=== PATIENT | female | born 1940 | race Caucasian/White ===

== ENCOUNTER 2022-05-03 02:32 | Outpatient (CLI) | payer MEDICARE, SELFPAY ==
[2022-05-03 10:01] LABS: HCT 38.1 % (36.0-46.0); HGB 12.1 g/dL (11.2-15.7); MCH 27.6 pg (27.0-33.0); MCHC 31.8 % (32.0-36.0); MCV 87 fL (80-95); Platelet Count 280 10^3/uL (130-400); RBC 4.39 10^6/uL (3.93-5.22); RDW 14.7 % (11.7-14.6); RDW-SD 47.4 fL
[2022-05-03 10:43] LABS: ALT 16 U/L (14-59); AST 14 U/L (15-37); Albumin 3.6 g/dL (3.4-5.0); Alkaline Phosphatase 69 U/L (46-116); Anion Gap 11.4 mmol/L (3-11); BUN 23 mg/dL (7-18); Bilirubin, Total 0.3 mg/dL (0.2-1.0); CO2 23.6 mmol/L (21.0-32.0); Calcium 9.3 mg/dL (8.5-10.1); Chloride 106 mmol/L (98-107); Glucose 106 mg/dL (74-106); Potassium 4.2 mmol/L (3.5-5.1); Sodium 141 mmol/L (136-145)
== END 2022-05-03 02:33 | disposition home or self-care (01) ==
LOC: LBO 02:32
PROVIDERS: Visit Provider Obstetrics & Gynecology Gynecology
DX: Z01.818 Encounter for other preprocedural examination (principal)
CPT/HCPCS: 36415; 80053; 85027

== ENCOUNTER 2022-05-09 12:49 | Outpatient (CLI) | payer MEDICARE, SELFPAY ==
[2022-05-09 13:55] LABS: ALT 13 U/L (14-59); AST 17 U/L (15-37); Albumin 3.5 g/dL (3.4-5.0); Alkaline Phosphatase 74 U/L (46-116); Anion Gap 13.3 mmol/L (3-11); BUN 17 mg/dL (7-18); Bilirubin, Total 0.3 mg/dL (0.2-1.0); CO2 21.7 mmol/L (21.0-32.0); CREATININE 0.8 mg/dL (0.55-1.02); Calcium 9.3 mg/dL (8.5-10.1); Chloride 108 mmol/L (98-107); Estimated GFR 73.06 (mL/min/1.73m2); Glucose 120 mg/dL (74-106); Potassium 4.2 mmol/L (3.5-5.1); Sodium 143 mmol/L (136-145)
== END 2022-05-09 12:50 | disposition home or self-care (01) ==
LOC: LBO 12:50
PROVIDERS: Visit Provider Obstetrics & Gynecology Gynecology
DX: N95.0 Postmenopausal bleeding (principal); Z01.818 Encounter for other preprocedural examination; Z01.812 Encounter for preprocedural laboratory examination
CPT/HCPCS: 36415; 80053; 86850; 86900; 86901

== ENCOUNTER 2022-05-10 07:44 | Day surgery (SDC) | payer MEDICARE, SELFPAY ==
--- NOTE | 2022-05-10 | ENDOMET_PTH ---
PATIENT: Annalise Scales LOC: [facility] U#:[id number] AGE/SX: 82/F ROOM: RE05/10/[address]: Paty Ochoa : 1940 BED: DIS: 05/10/2022 SPEC #: [id number] RECD: 05/10/22 12:32 STATUS: MYRNA REWilliams #: [id number] PAUL: 05/10/22 00:[address]: Paty Ochoa DEPT: Surgical Specimen RECD BY: Mari Man ENTERED: 05/10/22 12:34 SP TYPE: Endomet OTHR DR: Charissa Wang MD Tissues: 1 - ENDOMETRIUM BX/CURRETTE 2 - ENDOMETRIUM BX/CURRETTE Procedures: GROSS AND MICRO LEVEL 4 IMMUNOPEROXIDASE STAIN Comments: [id number]
[2022-05-10 08:12] VITALS: BP 143/69; PULSE 81; RESP 16; TEMP 36.7; O2SAT 98
--- NOTE | 2022-05-10 08:30 | ANES.PREOP_ITS ---
General Info Date of Service Date Performed: 05/10/22 Height: 5 ft 1.5 in Weight: 60.7 kg Body Mass Index (BMI): 24.8 Surgical Procedure: Operation Date: 05/10/22 09:25 Proposed Procedure Side Surgeon p Suction D&C, Endometrial Biopsy Paty Ochoa MD s Hysteroscopy Paty Ochoa MD Meds Allergies and Home Medications Allergies Allergy/AdvReac Type Severity Reaction Status Date / Time No Known Allergies Allergy Unverified 05/09/22 12:05 Home Medication Medication Instructions Recorded Senior Vit/D/Ca DAILY 10/07/14 ferrous gluconate 324 mg (38 mg 324 mg PO DAILY PRN 12/01/15 iron) tablet ibuprofen 200 mg capsule 200 mg PO Q6H PRN 04/27/22 norethindrone acetate 5 mg tablet 5 mg PO .COMPLEX #20 tabs 05/09/22 Current Visit Medications: Current Medications Generic Name Dose Route Start Last Admin Trade Name Freq PRN Reason Stop Dose Admin Ringer's Solution 1,000 mls @ 125 mls/hr 05/10/22 06:00 IV 05/10/22 16:00 INFUSION LEMUEL IV Miscellaneous Supplies 1 each 05/10/22 06:00 Iv Access IV 05/10/22 23:59 DIRECTED LEMUEL Sodium Chloride 0 ml 05/10/22 06:00 Normal Saline Flush 10 Ml Syr IV 05/10/22 23:59 PRN PRN Sodium Chloride 0 ml 05/10/22 06:00 Normal Saline 10 Ml Vial IJ 05/10/22 23:59 DIRECTED PRN Sterile Water 0 ml 05/10/22 06:00 Water,Injection,Sterile 10 Ml Vial IJ 05/10/22 23:59 DIRECTED PRN PFSH Active Problems Active Problems: Problem Status Onset Code Preop examination Z01.818 Postmenopausal bleeding N95.0 Medical History Medical History Post-menopausal bleeding Surgical History Surgical History Appendectomy (~2007) H/O dilation and curettage Tobacco Smoking/Tobacco Use Status: Never Second hand exposure: No Alcohol Alcohol Intake: current Alcohol intake frequency: holidays/special occasions only Substance Use Substance use: Never Substance use type: does not use Vital Signs and Lab Results Vital Signs Most Recent Vital Signs in EMR: Most Recent Vital Signs Temp Pulse Resp BP Pulse Ox 36.7 C 81 16 143/69 H 98 05/10/22 08:12 05/10/22 08:12 05/10/22 08:12 05/10/22 08:12 05/10/22 08:12 Lab Results Blood Type / Crossmatch: Patient ABO/Rh A Negative 05/09/22 Antibody Screen NEGATIVE 05/09/22 Complete Blood Count: White Blood Count 8.20 10^3/uL (4.4-10.8) 05/03/22 09:40 Red Blood Count 4.39 10^6/uL (3.93-5.22) 05/03/22 09:40 Hemoglobin 12.1 g/dL (11.2-15.7) 05/03/22 09:40 Hematocrit 38.1 % (36.0-46.0) 05/03/22 09:40 Platelet Count 280 10^3/uL (130-400) 05/03/22 09:40 Complete Metabolic Panel: Sodium 143 mmol/L (136-145) 05/09/22 13:10 Potassium 4.2 mmol/L (3.5-5.1) 05/09/22 13:10 Chloride 108 mmol/L (98-107) H 05/09/22 13:10 Carbon Dioxide 21.7 mmol/L (21.0-32.0) 05/09/22 13:10 BUN 17 mg/dL (7-18) 05/09/22 13:10 Creatinine 0.8 mg/dL (0.55-1.02) 05/09/22 13:10 Est GFR (CKD-EPI 2020) 73.06 (mL/min/1.73m2) 05/09/22 13:10 Calcium 9.3 mg/dL (8.5-10.1) 05/09/22 13:10 Albumin 3.5 g/dL (3.4-5.0) 05/09/22 13:10 Glucose 120 mg/dL (74-106) H 05/09/22 13:10 Liver Function Panel: Alanine Aminotransferase (ALT/SGPT) 13 U/L (14-59) L 05/09/22 1 3:10 Aspartate Amino Transf (AST/SGOT) 17 U/L (15-37) 05/09/22 13:10 Coagulation Panel: No Data to Display Cardiac Panel: No Data to Display Arterial Blood Gas: No Data to Display Venous Blood Gas: No Data to Display Pancreas Panel: No Data to Display Thyroid Panel: No Data to Display Infectious Disease: No Data to Display Blood Cultures: No Data to Display Toxicology Panel: No Data to Display Anesthesia Assessment and Plan Anesthesia History Personal History: No History of Anesthesia Complications Family History: No Family History of Anesthesia Complications Exercise Tolerance Exercise Tolerance: Metabolic Equivalents>4 Pertinent Negatives Pertinent Negatives: No Symptoms of GERD, No Major Cardiovascular Symptoms or Complaints and No Major Pulmonary Symptoms or Complaints Cardiac & Pulmonary Exam Cardiac Exam: Normal S1/S2 Heart Sounds Pulmonary Exam: Clear Bilateral Breath Sounds Implantable Cardiac Device Does patient have a Pacemaker or an ICD?: No Airway Exam Known Difficult Airway: No Mallampati Class: 2 Mouth Opening: Normal (> 3cm) Thyromental Distance: Greater than 3 cm Neck Range of Motion: Full ROM Neck Circumference: Normal Teeth Condition: Normal Dentition ASA Classification ASA Score: ASA 2 Emergency Case?: No NPO Status NPO Status: NPO Clears >2 hours, Solids >8 hours Anesthesia Plan Resuscitation Status: Full Code Anesthesia Technique: General Anesthesia Airway Planned: Natural Airway Monitors Used: Standard Monitors
[2022-05-10] MEDS: Lactated Ringers 1,000 ML 125 ML IV (08:42)
[2022-05-10 08:52] VITALS: BMI 24.8
[2022-05-10] MEDS: Bupivacaine 0.25% Pres-Free 30 ML VIAL (09:30)
[2022-05-10 09:58] VITALS: BP 121/69; PULSE 85; RESP 12; TEMP 36.4; O2SAT 98
[2022-05-10 10:03] VITALS: BP 128/77; PULSE 76; RESP 16; TEMP 36.4; O2SAT 95
[2022-05-10 10:08] VITALS: BP 130/64; PULSE 80; RESP 20; TEMP 36.4; O2SAT 96
[2022-05-10 10:15] VITALS: BP 132/71; PULSE 66; RESP 16; TEMP 36.4; O2SAT 97
--- NOTE | 2022-05-10 10:21 | ROE_ITS ---
Date of service: 05/10/22 Time of Service: : Operative Note Operative Note DATE OF PROCEDURE: 05/10/22 PRE-OP DIAGNOSIS: postmenopausal bleeding POST-OP DIAGNOSIS: same PROCEDURE: hysteroscopy, cervical dilation and suction curretage of uterine cavity SURGEON: Paty Ochoa Refer to Anesthesia Record ESTIMATED BLOOD LOSS: 10 PATHOLOGY: other (endometrial curretings to pathology) COMPLICATIONS: None Patient was transported to: PACU Patient's condition: stable Implants: none Indications: 82 yo G5 female with new onset of light postmenopausal bleeding 04/26/22 that worsened 48hrs prior to her visit to [facility]. Pt reported passing clots, saturating peripads throughout the day. On exam uterus bulky with cervix displaced to upper L of vaginal vault. H/H stable. Rx for Aygestin 5mg po every 6hr initiate and pt agreed to D&C today Findings: Bimanual exam: Uterus small, fixed. Lower uterine segment firm and enlarged. Pt has hx of uterine fibroids and exam consistent with fibroid of lower uterine segment. Stage 3 rectocele. Uterus sounded to 6cm. Uterine cavity thickened and actively bleeding. No polyps or masses identified. Procedure Description: Patient was taken to the operating room where she was placed in the dorsal supine position and general anesthesia via laryngeal mask was administered without difficulty. She was then placed in the dorsal lithotomy position in yellowfin stirrups in a neurologically neutral position. She was then prepped, and draped in the usual sterile fashion. Surgical timeout was performed. A short weighted speculum was placed into the vagina and a single-tooth tenaculum was then used to grasp and hold the anterior lip of the cervix. A paracervical block was performed with 4 cc of quarter percent Marcaine injected into the 4 and 8:00 paracervical spaces respectively. The uterus was sounded to 6 cm. The cervix was then sequentially dilated to a maximum of 16 [place]. A hysteroscope present inserted into the uterine cavity and normal saline was used as the distention medium all 4 quadrants of the uterine cavity carefully inspected. The hysteroscope was removed and a 6 mm curved suction cannula was inserted into the uterine cavity attached to suction and sequentially all 4 quadrants of the uterine cavity were suction curetted. The suction cannula was then removed a serrated banjo curette was used to perform a curetting of all 4 quadrants of the uterine cavity. The hysteroscope was reinserted and the uterine cavity was inspected. Cavity was noted to be intact. Hysteroscope was removed and a final insertion of the suction cannula and suction curetting of all 4 quadrants was performed. All instruments were removed from the vagina tenaculum site was noted to be hemostatic. Patient was awakened, extubated and transported to recovery area in stable c ondition. All sponge lap needle counts correct x2
[2022-05-10 10:40] VITALS: BP 143/69; PULSE 75; RESP 16; TEMP 36.5; O2SAT 98
--- NOTE | 2022-05-10 10:40 | PDOC.DSDIS_ITS ---
Date of service: 05/10/22 Time of Service: 10:40 Discharge Plan Disposition Patient Disposition: HOME Condition: Good Discharge Details Reason For Visit: D&C Attending Provider: Paty Ochoa Primary Care Provider: Charissa Wang Home Meds and New Rx's Prescriptions: No Action ibuprofen 200 mg capsule 200 mg PO Q6H PRN senior vit/D/Ca DAILY ferrous gluconate 324 MG tablet 324 mg PO DAILY PRN norethindrone acetate 5 mg tablet 5 mg PO .COMPLEX Qty: 20 1RF Rx Instructions: 5 mg orally every 6 hours; Discharge Instructions Additional Instructions: [facility] Gynecologic Oncology Department will be calling you with an appointment time to see their providers. Continue to take your Norethindrone 5mg every 6 hrs. Stand Alone Forms: Anesthesia Discharge Inst., DSU Post LINUX SYSTEM ADMINISTRATOR Surgery, Shanda Corado (DSU) Activity:: Activity as Tolerated Diet:: As Tolerated Discharge Orders Discharge Orders: Discharge Order (Routine); Ordered 05/10/22 Ordered By: Paty Ochoa
--- NOTE | 2022-05-10 11:11 | W.ANESPOSTOP ---
Postoperative Evaluation Date, Time and Location Date Performed: 05/10/22 Time Performed: 11:12 Patient Location: Day Surgery Unit Vital Signs Most Recent Imported Vital Signs: Most Recent Vital Signs Temp Pulse Resp BP Pulse Ox 36.4 C L 66 16 132/71 97 05/10/22 10:15 05/10/22 10:15 05/10/22 10:15 05/10/22 10:15 05/10/22 10:15 Pain Score Most Recent Pain Score: Most Recent Pain Score Pain Level 0 05/10/22 10:15 Assessment Mental Status: Awake (Alert & Oriented to Patient Baseline) Airway and Respiratory Function: Patent airway with normal (patient baseline) respiratory exam Cardiovascular Function: Hemodynamically Stable Hydration Status: Adequately Hydrated Nausea & Vomiting: No Nausea or Vomiting Pain: Pt. Denies Any Pain Peripheral Nerve Block: Patient did not receive a nerve block
== END 2022-05-10 11:09 | disposition home or self-care (01) ==
PROVIDERS: PCP Internal Medicine; Visit Provider Obstetrics & Gynecology Gynecology
PROC: (CPT 59841; principal; 2022-05-10 09:15)
PROC: 0UJD8ZZ Inspection of Uterus and Cervix, Via Natural or Artificial Opening Endoscopic (ICD-10-PCS; CPT 58555; 2022-05-10 09:15)
DX: N95.0 Postmenopausal bleeding (principal); D25.9 Leiomyoma of uterus, unspecified; N81.10 Cystocele, unspecified; C54.1 Malignant neoplasm of endometrium
CPT/HCPCS: 58558; 88305; 88361; J1100; J2405; J2704; J3010

== ENCOUNTER 2022-06-09 02:10 | Outpatient (CLI) | payer MEDICARE, SELFPAY ==
--- NOTE | 2022-06-09 08:45 | DI.CT_ITS ---
Exam(s) CT CHEST/ABD/PEL W EXAM: CT CHEST/ABD/PEL W CLINICAL HISTORY: ENDOMETRIAL CA, C54.1, ? METS TECHNIQUE: CT examination of the chest, abdomen, and pelvis was performed utilizing intravenous inf usion of 100 cc of Omnipaque 350 with biphasic hepatic imaging. Oral contrast was also administered. COMPARISON: No exams were available for comparison FINDINGS: Lungs are predominantly clear with a calcified right basilar nodule. No pleural effusion. No pleura l based mass. No mediastinal or hilar adenopathy. No axillary or supraclavicular adenopathy. Tracheobronchial vikas e appears intact. No evidence of pulmonary embolic disease. Unremarkable appearance of thoracic aorta and major branch vessels. There is a massive hiatal hernia which contains stomach, as well as portions of the duodenum and panc reas. The liver appears normal with no focal hepatic lesion identified. Spleen is unremarkable in appearance. Pancreas appears intact. Adrenals appear normal. There is no renal or ureteral calcification. There is moderate left hydronephrosis and question slig ht right hydronephrosis. Ureters are mildly dilated to the level of the pelvis, where they are appea rs to be extrinsic compression by the massively enlarged uterus. Infiltration of ureters by tumor no t excluded. Urinary bladder has a thickened wall which is a nonspecific finding.. Abdominal aorta and major visceral branches appear intact. No focal bowel pathology. Appendix is normal. No evidence of diverticulitis. No abdominal or pelvic adenopathy. There is small fat containing ventral hernia. No focal bony lesion identified on scanning of the chest, abdomen, and pelvis. IMPRESSION: Massively enlarged heterogeneous uterus consistent with diagnosis of endometrial carcinoma. Left ure teral obstruction and probable right ureteral obstruction, secondary to compression versus invasion. No gross local or remote metastatic disease identified.. RADIATION DOSE DELIVERED: 1,291.68mGy.cm Total DLP 1,291.68mGy.cm Total DLP DATA REPOSITORY: All CT scans at this facility are submitted to the National Radiology Data Registry (NRDR) Dose Index Registry (DIR) with the [employer] (ACR). RADIATION OPTIMIZATION: All CT scans at this facility use at least one of these dose optimization te chniques: automated exposure control; mA and/or kV adjustment per patient size (includes targeted exa ms where dose is matched to clinical indication); or iterative reconstruction.
[2022-06-09] MEDS: Barium Sulfate 2% W/V-Berry Smoothie 450 ML BTL PO ×2 (09:09→09:10)
[2022-06-09] MEDS: Omnipaque 350 MG/ML 500 ML BTL-Imaging package 100 ML IJ (10:53)
[2022-06-09] MEDS: Normal Saline - Diluent 50 ML VIAL IJ (10:54)
== END 2022-06-09 02:30 ==
PROVIDERS: PCP Internal Medicine; Visit Provider Obstetrics & Gynecology Gynecologic Oncology
DX: C54.1 Malignant neoplasm of endometrium (principal); N13.5 Crossing vessel and stricture of ureter without hydronephrosis
CPT/HCPCS: 74177; 71260

== ENCOUNTER 2022-08-31 02:39 | Outpatient (CLI) | payer MEDICARE, SELFPAY ==
[2022-08-31 11:16] LABS: CREATININE 1.1 mg/dL (0.55-1.02); Estimated GFR 49.86 (mL/min/1.73m2)
== END 2022-08-31 02:40 | disposition home or self-care (01) ==
LOC: LBO 02:39
PROVIDERS: PCP Internal Medicine; Visit Provider Radiology Radiation Oncology
DX: C54.1 Malignant neoplasm of endometrium (principal)
CPT/HCPCS: 36415; 82565

== ENCOUNTER 2022-09-28 11:53 | Outpatient (CLI) | payer MEDICARE, SELFPAY ==
[2022-09-28 10:37] LABS: Abs Immature Grans 0.01 10^3/uL (0.0-0.06); Absolute Basophil Count 0.03 10^3/uL (0.0-0.2); Absolute Eosinophil Count 0.05 10^3/uL (0.0-0.7); Absolute Lymphocyte Count 1.35 10^3/uL (1.2-3.4); Absolute Monocyte Count 0.44 10^3/uL (0.1-0.8); Absolute Neutrophil Count 3.46 10^3/uL (1.2-6.7); Basophils % 0.6; Eosinophils % 0.9; HCT 39.4 % (36.0-46.0); HGB 12.8 g/dL (11.2-15.7); Immature Grans % 0.2; Lymphocytes % 25.3; MCH 26.9 pg (27.0-33.0); MCHC 32.5 % (32.0-36.0); MCV 83 fL (80-95); MPV 10.1 fL (8.0-11.0); Monocytes % 8.2; Neutrophils % 64.8; Platelet Count 262 10^3/uL (130-400); RBC 4.76 10^6/uL (3.93-5.22); RDW 15.5 % (11.7-14.6); RDW-SD 47.1 fL; WBC 5.34 10^3/uL (4.4-10.8)
[2022-09-28 10:40] LABS: Bilirubin Negative (Negative); Blood Small (Negative); Clarity Sl Cloudy (Clear); Glucose Negative (Negative); Ketones Negative (Negative); Leukocyte Esterase Large (Negative); Nitrite Positive (Negative); Specific Gravity 1.015 (1.005-1.025); Urobilinogen 0.2 mg/dL (Up to 0.2)
[2022-09-28 10:55] LABS: WBC >50 HPF (0-5)
[2022-09-28 10:56] LABS: Bacteria Many HPF (Negative)
[2022-09-28 10:57] LABS: C & S Indicated? Yes
== END 2022-09-28 11:54 | disposition home or self-care (01) ==
LOC: LBO 11:55
PROVIDERS: PCP Internal Medicine; Visit Provider Radiology Radiation Oncology
DX: C54.1 Malignant neoplasm of endometrium (principal); R82.998 Other abnormal findings in urine
CPT/HCPCS: 36415; 87077; 81003; 81015; 85025; 87086; 87186

== ENCOUNTER 2022-10-13 12:31 | Outpatient (CLI) | payer MEDICARE, SELFPAY ==
[2022-10-13 12:49] LABS: Abs Immature Grans 0.02 10^3/uL (0.0-0.06); Absolute Basophil Count 0.03 10^3/uL (0.0-0.2); Absolute Eosinophil Count 0.34 10^3/uL (0.0-0.7); Absolute Lymphocyte Count 0.42 10^3/uL (1.2-3.4); Absolute Monocyte Count 0.36 10^3/uL (0.1-0.8); Absolute Neutrophil Count 4.25 10^3/uL (1.2-6.7); Basophils % 0.6; Eosinophils % 6.3; HCT 36.8 % (36.0-46.0); HGB 12.1 g/dL (11.2-15.7); Immature Grans % 0.4; Lymphocytes % 7.7; MCH 27.1 pg (27.0-33.0); MCHC 32.9 % (32.0-36.0); MCV 83 fL (80-95); MPV 9.4 fL (8.0-11.0); Monocytes % 6.6; Neutrophils % 78.4; Platelet Count 144 10^3/uL (130-400); RBC 4.46 10^6/uL (3.93-5.22); RDW 15.8 % (11.7-14.6); RDW-SD 47.2 fL; WBC 5.42 10^3/uL (4.4-10.8)
[2022-10-13 12:52] LABS: Bilirubin Negative (Negative); Blood Negative (Negative); Clarity Clear (Clear); Glucose Negative (Negative); Ketones Negative (Negative); Leukocyte Esterase Small (Negative); Nitrite Negative (Negative); Urobilinogen 0.2 mg/dL (Up to 0.2); pH 5.5 (5-8)
[2022-10-13 12:57] LABS: Epithelial Cells Many HPF (Negative); RBC 0-2 HPF (0-2)
[2022-10-13 12:58] LABS: Bacteria Few HPF (Negative); C & S Indicated? No/Sq. Contamination; Casts Negative LPF (Negative); Crystals Negative HPF (Negative); Mucus Trace (Negative)
== END 2022-10-13 12:32 | disposition home or self-care (01) ==
LOC: LBO 12:32
PROVIDERS: PCP Internal Medicine; Visit Provider Radiology Radiation Oncology
DX: C54.1 Malignant neoplasm of endometrium (principal); R82.998 Other abnormal findings in urine
CPT/HCPCS: 36415; 81003; 81015; 85025

== ENCOUNTER 2022-10-27 03:39 | Outpatient (CLI) | payer MEDICARE, SELFPAY ==
[2022-10-27 10:58] LABS: Abs Immature Grans 0.03 10^3/uL (0.0-0.06); Absolute Basophil Count 0.03 10^3/uL (0.0-0.2); Absolute Eosinophil Count 0.31 10^3/uL (0.0-0.7); Absolute Lymphocyte Count 0.39 10^3/uL (1.2-3.4); Absolute Monocyte Count 0.38 10^3/uL (0.1-0.8); Absolute Neutrophil Count 2.98 10^3/uL (1.2-6.7); Basophils % 0.7; Eosinophils % 7.5; HCT 37.4 % (36.0-46.0); Immature Grans % 0.7; Lymphocytes % 9.5; MCH 26.8 pg (27.0-33.0); MCHC 32.1 % (32.0-36.0); MCV 84 fL (80-95); MPV 8.6 fL (8.0-11.0); Monocytes % 9.2; Neutrophils % 72.4; Platelet Count 216 10^3/uL (130-400); RBC 4.47 10^6/uL (3.93-5.22); RDW 15.9 % (11.7-14.6); RDW-SD 47.8 fL; WBC 4.12 10^3/uL (4.4-10.8)
== END 2022-10-27 03:40 | disposition home or self-care (01) ==
LOC: LBO 03:39
PROVIDERS: Visit Provider Radiology Radiation Oncology
DX: C54.1 Malignant neoplasm of endometrium (principal)
CPT/HCPCS: 36415; 85025

== ENCOUNTER 2022-11-16 00:49 | Outpatient (CLI) | payer MEDICARE, SELFPAY ==
--- NOTE | 2022-11-16 | DI.MRI_ITS ---
Exam(s) MR PELVIS WO/W EXAM: MR PELVIS WO/W CLINICAL HISTORY: S/P HYST FOR UTERINE CA,CT SIM SOFT TISSUE THICKENING FOR XRT,C54,.1 TECHNIQUE: Multiplanar multisequence MRI of Pelvis was performed. CONTRAST MATERIAL: IV Contrast: 12 mL of Dotarem contrast administered. COMPARISON: CT CT CHEST/ABD/PEL W from 06/09/[address] RAD ONC BODY INTERP from 10/25/2022 FINDINGS: The patient is status post hysterectomy. The ovaries are not identified. There is no free fluid or localized collection. There is no evidence of adenopathy. No Dariela rectal or other pelvic mass is id entified. A midline surgical scar is present which is unremarkable. There is small fatty containing bilateral inguinal hernias. There is a small amount of fluid in the distal iliopsoas bursa on the left. Sigmo id diverticulosis is noted. No suspicious bony lesions are seen. IMPRESSION: No perirectal or other pelvic mass is identified. Status post hysterectomy. DATA REPOSITORY:
[2022-11-16] MEDS: Normal Saline Flush 10 ML SYR IVP (10:46)
[2022-11-16] MEDS: Gadoterate meglumine 20 ML VIAL 12 ML IVP (10:46)
== END 2022-11-16 01:09 ==
LOC: DI 00:49
PROVIDERS: Visit Provider Radiology Radiation Oncology
DX: C54.1 Malignant neoplasm of endometrium (principal); Z90.710 Acquired absence of both cervix and uterus
CPT/HCPCS: 72197; 82565

== ENCOUNTER 2023-02-06 00:36 | Outpatient (CLI) | payer MEDICARE, SELFPAY ==
--- NOTE | 2023-02-06 | DI.CT_ITS ---
Exam(s) CT ABDOMEN PELVIS W EXAM: CT ABDOMEN PELVIS W CLINICAL HISTORY: LLQ ABD PAIN, S/P XRT ENDOMETRIAL CA, RENAL LESION. TECHNIQUE: Imaging Protocol: Axial computed tomography images with coronal and sagittal reformatted images were created and reviewed CONTRAST MATERIAL: Intravenous: Omnipaque-350 100cc Oral: Yes. Oral contrast was administered for bowel opacification. COMPARISON: CT CT CHEST/ABD/PEL W from 06/09/2022 FINDINGS: VISUALIZED LUNG BASES: There are now metastatic appearing nodules in the right lung base.. There is a 1.5 x 1.5 cm noncalcified pleural base nodule medially above the pre-existing calcified granuloma i n the right lung base. This was not previously evident. Also new smaller nodules in the posterior b mary segment of the right lower lobe. No pleural effusions. ABDOMEN: Large left diaphragmatic hernia again noted which contains most of the stomach and part of the pancre as. GI: There is an ominous mass in the left side of the colon just beyond the splenic flexure. This is over a distance of 5 cm and is suspicious for neoplasm. This was not evident on prior CT scan of 07/2021. This may be metastatic and indeed there are multiple anterior and left-sided mesenteric nod ules now evident which were not evident on the prior study of June 2022. Also a right-sided pre Kolich mesenteric mass measuring 2.5 x 1.7 cm, also most probably metastatic. LIVER: There are no focal hepatic lesions evident. No dilated intrahepatic ducts. GALLBLADDER/BILIARY: No obvious gallbladder pathology. CBD is not dilated. PANCREAS: No evidence of pancreatic mass nor dilatation of the pancreatic duct. Pancreatic head and uncinate process and neck are in the abdomen. 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 SPLEEN: Spleen is not enlarged. No obvious intrasplenic lesions. Splenic and portal veins are paten t. ADRENALS: There are no significant adrenal masses. KIDNEYS:There are cysts in both kidneys both cortical and parapelvic. Mild remaining hydronephrosis bilaterally. No solid renal masses. No calculi nor hydronephrosis.. ABDOMINAL AORTA: Atherosclerotic. 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 No aneurysms of the il iac vessels. LYMPH NODES:There is no retroperitoneal nor paraaortic adenopathy. ABDOMINAL WALL: Anterior abdominal wall fat containing umbilical hernia again noted. There is a dens ity in the hernia sac which is difficult to determine if this is part of a small-bowel loop or other pathology. This was not previously present. There is no transition point at this level. No bowel o bstruction. PELVIS: REPRODUCTIVE: The grossly abnormal and neoplastic appearing uterus has been surgically removed. Ther e is some postsurgical streaking in this region. No obvious recurrence mass at this location nor brayd e fluid in the pelvis. No adenopathy around the aortic bifurcation nor along the iliac chains. No i nguinal adenopathy. GI: There is diffuse thickening of the wall of the sigmoid which is circumferential and may be relate d to the presence of diverticuli but also be considered is possibly a post radiation colitis in if th ere has been radiation therapy.No evidence of sigmoid diverticulitis. URINARY BLADDER: There is diffuse thickening of the urinary bladder wall. Suspicious for cystitis, p ossibly post radiation. Also calcifications again noted in the anterior wall the bladder.. OSSEOUS: No fractures and no significant osseous lesions. Degenerative anterolisthesis of L4 upon L5 again noted. IMPRESSION: 1. Compared to the prior CT scan of 06/09/2022 there has been interval hysterectomy. 2. There is diffuse thickening of the urinary bladder wall and sigmoid wall which I suspect may be re lated to post radiation changes. 3. Higher up in the abdomen there are concerning new lesions in the anterior pre and paracolic mesent brenna as well as long to truly orientated along the left side of the colon starting gas distal to the s plenic flexure. These findings were not evident on the CT scan of 06/09/2022 and are suspicious for metastatic disease. It is doubtful that this finding in the colon which was not previously present w ould be primary colon malignancy. There is no bowel obstruction at this level. 4. There is an umbilical hernia which contains a density which may be another metastatic lesion. Is adjacent to bowel loops at this level. There is no evidence of bowel obstruction. No free air. 5. There are multiple new metastatic nodules in the right lung base. 6. Posterolateral Bochdalek-type hernia in the chest which contains large part of the stomach and pa ncreatic body. This was previously present. RADIATION DOSE DELIVERED: 1,051.13mGy.cm Total DLP DATA REPOSITORY: All CT scans at this facility are submitted to the National Radiology Data Registry (NRDR) Dose Index Registry (DIR) with the [employer] (ACR). RADIATION OPTIMIZATION: All CT scans at this facility use at least one of these dose optimization te chniques: automated exposure control; mA and/or kV adjustment per patient size (includes targeted exa ms where dose is matched to clinical indication); or iterative reconstruction.
[2023-02-06] MEDS: Barium Sulfate 2% W/V-Berry Smoothie 450 ML BTL 900 ML PO (09:03)
[2023-02-06 10:06] LABS: Estimated GFR 55.55 (mL/min/1.73m2)
[2023-02-06] MEDS: Normal Saline - Diluent 50 ML VIAL IJ (11:10)
[2023-02-06] MEDS: Omnipaque 350 MG/ML 500 ML BTL-Imaging package IJ (11:11)
== END 2023-02-06 00:56 ==
LOC: DI 00:36
PROVIDERS: Visit Provider Radiology Radiation Oncology
DX: Z90.710 Acquired absence of both cervix and uterus (principal); R91.8 Other nonspecific abnormal finding of lung field; K66.8 Other specified disorders of peritoneum; I70.0 Atherosclerosis of aorta; K44.9 Diaphragmatic hernia without obstruction or gangrene
CPT/HCPCS: 74177; 82565